=== PATIENT | male | born 1985 | race Two or more races ===

== ENCOUNTER 2018-06-28 13:35 | Emergency (ER) | payer OTHER ==
[~2018-06-28] VITALS: Ht 170.2 cm; Wt 85.7 kg
[2018-06-28] MEDS ORDERED: AUGMENTIN875 MG PO (14:45)
[2018-06-28] MEDS ORDERED: MOTRIN800 MG PO (14:45)
[2018-06-28 15:58] VITALS: BP 144/94
== END 2018-06-28 16:00 | disposition home or self-care (01) ==
LOC: EME 13:35
PROC: 3E0234Z Introduction of Serum, Toxoid and Vaccine into Muscle, Percutaneous Approach (ICD-10-PCS; principal; 2018-06-28)
DX: S61.051A Open bite of right thumb without damage to nail, initial encounter (principal); S61.351A Open bite of left index finger with damage to nail, initial encounter; S61.253A Open bite of left middle finger without damage to nail, initial encounter; W55.51XA Bitten by raccoon, initial encounter; Z23 Encounter for immunization; Z29.14 Encounter for prophylactic rabies immune globulin; Z87.891 Personal history of nicotine dependence
CPT/HCPCS: 73130; 99281; 99284